=== PATIENT | male | born 1980 | race Caucasian/White ===

== ENCOUNTER 2017-02-23 10:49 | Emergency (ER) | payer BC, OTHER | END 2017-02-23 11:23 | disposition home or self-care (01) | LOC: NAV ERS 10:49 | DX: F41.9 Anxiety disorder, unspecified (principal); F14.10 Cocaine abuse, uncomplicated; J45.909 Unspecified asthma, uncomplicated; F17.299 Nicotine dependence, other tobacco product, with unspecified nicotine-induced disorders | CPT/HCPCS: 93005 ==

== ENCOUNTER 2020-05-20 12:57 | Emergency (ER) | payer BC, SELFPAY | END 2020-05-20 14:17 | disposition home or self-care (01) | LOC: NAV ERS 12:57 | DX: H81.13 Benign paroxysmal vertigo, bilateral (principal); J45.909 Unspecified asthma, uncomplicated; E11.9 Type 2 diabetes mellitus without complications; F17.290 Nicotine dependence, other tobacco product, uncomplicated; Z85.528 Personal history of other malignant neoplasm of kidney; Z79.84 Long term (current) use of oral hypoglycemic drugs; Z79.899 Other long term (current) drug therapy | CPT/HCPCS: 36416; 99284 ==